=== PATIENT | female | born 1935 | race African-American/Black ===

== ENCOUNTER 2020-09-17 13:03 | Outpatient (CLI) | payer MEDICARE, MEDICAID | END 2020-09-17 13:04 | disposition home or self-care (01) | LOC: CSHMAMMO 13:03 | PROVIDERS: ATTEND Internal Medicine | DX: Z12.31 Encounter for screening mammogram for malignant neoplasm of breast (principal); Z78.0 Asymptomatic menopausal state; M85.851 Other specified disorders of bone density and structure, right thigh; M81.0 Age-related osteoporosis without current pathological fracture | CPT/HCPCS: 77063; 77067; 77080 ==

== ENCOUNTER 2021-08-02 11:54 | Emergency (ER) | payer MEDICARE, OTHER ==
[2021-08-02] MEDS ORDERED: Diazepam 10 MG/2 ML SYRINGE ONE (12:52)
== END 2021-08-02 13:03 | disposition home or self-care (01) ==
LOC: CSHERS 11:54
DX: S13.4XXA Sprain of ligaments of cervical spine, initial encounter (principal); E78.5 Hyperlipidemia, unspecified; I10 Essential (primary) hypertension; Z87.891 Personal history of nicotine dependence; X58.XXXA Exposure to other specified factors, initial encounter
CPT/HCPCS: 96372; 99283; J3360

== ENCOUNTER 2021-11-17 08:46 | Outpatient (CLI) | payer MEDICARE, OTHER | END 2021-11-17 08:47 | disposition home or self-care (01) | LOC: CSHMAMMO 08:46 | PROVIDERS: ATTEND Family Medicine | DX: Z12.31 Encounter for screening mammogram for malignant neoplasm of breast (principal) | CPT/HCPCS: 77063; 77067 ==

== ENCOUNTER 2022-08-22 14:55 | Outpatient (CLI) | payer OTHER | END 2022-08-22 14:56 | disposition home or self-care (01) | LOC: CSHRAD 14:55 | PROVIDERS: ATTEND Student in an Organized Health Care Education/Training Program | DX: R05.9 Cough, unspecified (principal); R09.89 Other specified symptoms and signs involving the circulatory and respiratory systems; R06.09 Other forms of dyspnea | CPT/HCPCS: 71046 ==

== ENCOUNTER 2022-09-07 12:22 | Outpatient (CLI) | payer OTHER | END 2022-09-07 12:23 | disposition home or self-care (01) | LOC: CSHULT 12:22 | PROVIDERS: ATTEND Student in an Organized Health Care Education/Training Program | DX: R01.1 Cardiac murmur, unspecified (principal); R09.89 Other specified symptoms and signs involving the circulatory and respiratory systems; R06.09 Other forms of dyspnea; R93.1 Abnormal findings on diagnostic imaging of heart and coronary circulation | CPT/HCPCS: 93306 ==

== ENCOUNTER 2022-09-14 10:03 | Outpatient (CLI) | payer OTHER, MEDICAID | END 2022-09-14 10:04 | disposition home or self-care (01) | LOC: CSHCP 10:03 | PROVIDERS: ATTEND Student in an Organized Health Care Education/Training Program | DX: J84.10 Pulmonary fibrosis, unspecified (principal) | CPT/HCPCS: 94060; 94726; 94729; 94760 ==

== ENCOUNTER 2023-11-02 10:43 | Emergency (ER) | payer MEDICARE, OTHER ==
[2023-11-02] MEDS ORDERED: Iopamidol 370 76% 100 ML VIAL ONE (11:01)
[2023-11-02 12:04] LABS: #Basophils 0.04 10x3/uL (0.0-0.2); #Eosinphils 0.14 10x3/uL (0.0-0.5); #Monocytes 1.18 10x3/uL (0.0-1.1); #Neutrophils 5.92 10x3/uL (1.5-8.4); %Basophils 0.4 % (0.0-2.0); %Eosinophils 1.5 % (0.0-6.0); %Monocytes 12.9 % (0.0-10.0); Hematocrit 33.6 % (34.9-44.5); Hemoglobin 11.4 g/dL (12.0-15.5); Mean Corpuscular HGB CONC 33.9 g/dL (32.0-36.0); Mean Corpuscular Hemoglobin 29.3 pg (27.0-33.0); Mean Corpuscular Volume 86.4 fL (81.6-98.3); Mean Platelet Volume 10.5 fL (7.4-10.4); Platelet Count 285 10x3/uL (150-450); RBC Distribution Width 12.8 % (11.5-14.5); Red Blood Cell (RBC) Count 3.89 10x6/uL (3.90-5.03); White Blood Cell (WBC) Count 9.1 10x3/uL (3.5-10.5)
[2023-11-02 12:43] LABS: Anion Gap 12 mmol/L (10-20); BUN (Urea Nitrogen) 14 mg/dL (9.8-20.1); Calc. Creatinine Clearance 0 mL/min (70-130); Calcium 8.9 mg/dL (7.8-10.44); Carbon Dioxide 23 mmol/L (23-31); Chloride 105 mmol/L (98-107); Estimated GFR 67; Glucose 99 mg/dL (83-110); Potassium 3.9 mmol/L (3.5-5.1); Sodium 136 mmol/L (136-145)
== END 2023-11-02 14:20 | disposition home or self-care (01) ==
LOC: CSHERS 10:43
DX: J43.9 Emphysema, unspecified (principal); J42 Unspecified chronic bronchitis; R04.2 Hemoptysis; I25.10 Atherosclerotic heart disease of native coronary artery without angina pectoris; I10 Essential (primary) hypertension; K21.9 Gastro-esophageal reflux disease without esophagitis; Z87.891 Personal history of nicotine dependence; Z79.899 Other long term (current) drug therapy; Z79.82 Long term (current) use of aspirin
CPT/HCPCS: 36415; 71260; 80048; 85025; Q9967

== ENCOUNTER 2023-11-15 07:16 | Outpatient (CLI) | payer MEDICARE, OTHER | END 2023-11-15 07:17 | disposition home or self-care (01) | LOC: CSHULT 07:16 | PROVIDERS: ATTEND Family Medicine | DX: R10.31 Right lower quadrant pain (principal); N28.1 Cyst of kidney, acquired; Z90.49 Acquired absence of other specified parts of digestive tract; M79.89 Other specified soft tissue disorders | CPT/HCPCS: 76700; 76856 ==

== ENCOUNTER 2024-04-22 08:39 | Emergency (ER) | payer OTHER ==
[2024-04-22 09:17] LABS: Bilirubin 1+ (Negative); Blood, Urine 150 (Negative); Clarity Cloudy (Clear); Glucose, Urine (Dipstick) Normal (Negative); Ketone, Urine 5 mg/dL (Negative); Leukocyte 500 (Negative); Nitrite Negative (Negative); Protein, Urine (Dipstick) 100 mg/dl (Neg-Trace); Specific Gravity, Urine 1.025 (1.005-1.030)
[2024-04-22 09:34] LABS: CAUTI Indications for Culture Pelvic or flank pain; RBC/HPF Greater than 50 HPF (0-3); WBC/HPF Greater than 50 HPF (0-3)
[2024-04-22] MEDS ORDERED: Ondansetron PF 4 MG/2 ML Vial ONE (09:34)
[2024-04-22 09:35] LABS: Bacteria/HPF 4+ HPF (None Seen)
[2024-04-22] MEDS ORDERED: Morphine 2 MG/ML VIAL ONE ×3 (09:35→11:49)
[2024-04-22 09:36] LABS: Urine Culture Reflex Yes Yes
[2024-04-22 09:42] LABS: #Basophils 0.01 10x3/uL (0.0-0.2); #Eosinophils 0.01 10x3/uL (0.0-0.5); #Monocytes 0.73 10x3/uL (0.0-1.1); #Neutrophils 9.52 10x3/uL (1.5-8.4); %Basophils 0.1 % (0.0-2.0); %Eosinophils 0.1 % (0.0-6.0); %Neutrophils 78.5 % (40.0-75.0); Hematocrit 40.5 % (34.9-44.5); Hemoglobin 13.5 g/dL (12.0-15.5); Mean Corpuscular HGB CONC 33.3 g/dL (32.0-36.0); Mean Corpuscular Hemoglobin 29.2 pg (27.0-33.0); Mean Corpuscular Volume 87.7 fL (81.6-98.3); Mean Platelet Volume 10.4 fL (7.4-10.4); Platelet Count 152 10x3/uL (150-450); RBC Distribution Width 13.2 % (11.5-14.5); Red Blood Cell (RBC) Count 4.62 10x6/uL (3.90-5.03); White Blood Cell (WBC) Count 12.1 10x3/uL (3.5-10.5)
[2024-04-22 09:55] LABS: Actual Bicarbonate (HCO3v) 21.8 mEq/L (22-28); Analyzer IN Cardio CS ER; Base Excess -0.5 mEq/L (-2 - +2); Calcium, Ionized (venous) 1.17 mmol/L (1.16-1.32); Chloride (VBG) 99 mmol/L (98-106); Hematocrit-VBG 41 % (36.0-47.0); Hemoglobin (Hb) 13.9 g/dL (11.7-16.1); Potassium (VBG) 2.94 mmol/L (3.70-5.30); Puncture Site Other Site; RapidComm Collect By cbn; Sodium 140 mmol/L (133-146); pH (venous) 7.483 (7.32-7.43)
[2024-04-22 09:59] LABS: ALT (SGPT) 12 U/L (8-55); AST (SGOT) 17 U/L (5-34); Albumin 3.3 g/dL (3.4-4.8); Alkaline Phosphatase 54 U/L (40-110); Anion Gap 20 mmol/L (10-20); BUN (Urea Nitrogen) 22 mg/dL (9.8-20.1); Bilirubin, Total 1.7 mg/dL (0.2-1.2); Calc. Creatinine Clearance 0 mL/min (70-130); Calcium 9.7 mg/dL (7.8-10.44); Carbon Dioxide 21 mmol/L (23-31); Chloride 101 mmol/L (98-107); Estimated GFR 51; Globulin 4.1 g/dL (2.4-3.5); Glucose 138 mg/dL (83-110); Lipase 14 U/L (8-78); Protein, Total 7.4 g/dL (5.8-8.1); Sodium 139 mmol/L (136-145)
[2024-04-22 10:02] LABS: Troponin I Less than 0.010 ng/mL (< 0.028)
== END 2024-04-22 13:23 | disposition short-term general hospital (02) ==
LOC: CSHERS 08:39
DX: K56.609 Unspecified intestinal obstruction, unspecified as to partial versus complete obstruction (principal); I10 Essential (primary) hypertension; K21.9 Gastro-esophageal reflux disease without esophagitis; Z87.891 Personal history of nicotine dependence; Z55.0 Illiteracy and low-level literacy; Z79.899 Other long term (current) drug therapy; Z79.82 Long term (current) use of aspirin
CPT/HCPCS: 71045; 74177; 80053; 81001; 82805; 83605; 83690; 84484; 85025; 87086; J2272; J2405; 36415; 87077; 87186; 96374; 96375; 96376